=== PATIENT | male | born 1975 | race Caucasian/White ===

== ENCOUNTER 2016-09-23 07:23 | Emergency (ER) | payer MEDICAID ==
[2016-09-23 07:39] VITALS: RESP 18; TEMP 97.5
--- NOTE | 2016-09-23 07:43 | EDPHY ---
H & P Time Seen by Provider: 09/23/16 07:27 HPI/ROS: CHIEF COMPLAINT: Concerned about possible left elbow cellulitis HISTORY OF PRESENT ILLNESS: The patient presents to the ED because he is concerned about recurrent left elbow cellulitis. 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 He is currently homeless. The patient did developed a scab to his left elbow several days ago which he picked off this morning. He reported there is some mild discharge from the area. The patient denies additional skin lesions. He has no complaints of fever. The patient has been on clindamycin in the past. He is not been on recent antibiotics. REVIEW OF SYSTEMS: A comprehensive 10 point review of systems is otherwise negative aside from elements mentioned in the history of present illness. - Personal History Tetanus Vaccine Date: 2008 - Medical/Surgical History Hx Asthma: No Hx Chronic Respiratory Disease: No Hx Diabetes: No Hx Cardiac Disease: No Hx Renal Disease: No Hx Cirrhosis: No Hx Alcoholism: No Hx HIV/AIDS: No Hx Splenectomy or Spleen Trauma: No Other PMH: Subdural hemorrhage, homelessness - Physical Exam Exam: General Appearance: Alert, no distress Eyes: Pupils equal and round no pallor or injection ENT, Mouth: Mucous membranes moist Respiratory: There are no retractions, lungs are clear to auscultation Cardiovascular: Regular rate and rhythm Gastrointestinal: Abdomen is soft and nontender, no masses, bowel sounds normal Neurological: A&O, normal motor function, normal sensory exam, normal cranial nerves Skin: Small 1 cm x 1 cm area of cellulitis over the left olecranon Musculoskeletal: Neck is supple nontender Extremities: symmetrical, full range of motion Allergies/Adverse Reactions: Sulfa (Sulfonamide Antibiotics) Allergy (Verified 11/22/13 19:21) Home Medications: Medication Instructions Recorded Ibuprofen [Motrin] 800 mg PO DAILY 11/22/13 Multivitamins [Tab-A-Chuckie] 1 tab PO DAILY 11/22/13 Medical Decision Making ED Course/Re-evaluation: The patient presents to the ED with an extremely small area of cellulitis. There is no evidence of abscess, and olecranon bursitis or septic arthritis. The patient will be given a short course of clindamycin. He is advised to follow up with his primary care provider at [facility]. Departure - Departure Disposition: Home, Routine, Self-Care Clinical Impression: Cellulitis Condition: Good Instructions: Cellulitis (ED) Additional Instructions: 1. Please take antibiotics as directed for next 7 days. 2. Please follow up with [facility]. 3. Please return to the ED for markedly worsening pain, redness, fever, swelling or other concerns. Referrals: [facility] [Outside] - As per Instructions
[2016-09-23 08:00] VITALS: BP 133/85; PULSE 68; O2SAT 95
== END 2016-09-23 08:04 | disposition home or self-care (01) ==
LOC: EDUNIT#
DX: L03.114 Cellulitis of left upper limb (principal)

== ENCOUNTER 2018-07-24 14:47 | Emergency (ER) | payer MEDICAID, OTHER ==
--- NOTE | 2018-07-24 15:55 | EDPHY ---
H & P Time Seen by Provider: 07/24/18 15:19 HPI/ROS: CLINICAL IMPRESSION: Left lower dental abscess ASSESSMENT/PLAN: 42-year-old male brought to the ED by police from the long term for evaluation of a possible dental abscess. Patient reports having multiple CT scans, dental ultrasounds, and recent dental extraction as well as I and D of a dental and facial abscess. He is not currently on antibiotics. Patient has swelling noted to the left cheek near the mandible with no fluctuance, erythema, warmth or suggestion of underlying abscess. Palpation of this area however does reveal purulent discharge draining through recent dental extraction site on left posterior lower molar. No clinical signs of ANUG, gingival buccal abscess , facial cellulitis, facial abscess, Isiah's angina, neck abscess, osteomyelitis, or necrotizing fasciitis. Patient was started on clindamycin, a dentist will be available at the long term in the next 2 days and I recommended re- evaluation with dental x-rays at that time. Low threshold for return to ER sooner as outlined in person and with [employer]. DIFFERENTIAL DX: Periapical abscess, facial cellulitis, gingival buccal abscess,ANUG, Isiah's angina, neck abscess, neck cellulitis CHIEF COMPLAINT: Left facial swelling HPI: 42-year-old male presents to the emergency department with [facility] from the long term for evaluation of left facial swelling. Patient reports he has had several dental abscesses over the last month or 2 that have been treated by dentist. He also has been treated by [facility]. He reports having several dental extractions as well as drainage of an abscess through the skin of the left side of the face. He is not currently on antibiotics. No reported fevers, chills, difficulty handling secretions, tongue swelling or neck swelling. He does report tasting"bad tasting debris in his mouth which he believes is drainage from the abscess" PMH: See chart Pertinent Past Surgical History: Dental extraction Family History: Noncontributory Social History: Incarcerated ROS: A full 10 point review of systems was negative except for those mentioned in HPI. PHYSICAL EXAM: General Appearance: Alert, oriented, appropriate, cooperative, NAD, well hydrated, non-toxic appearing, VSS, no hypoxia. HEENT: [TMs are clear bilaterally no perforation or FB, no injection, no evidence of serous or mucopurulent otitis. Oropharynx clear is no erythema or exudates, no tonsillar hypertrophy or asymmetry. Recent dental extraction noted to left lower jaw. Palpation along the left mandible reveals purulent discharge in the mouth at extraction site. No evidence of gingival buccal abscess or ANUG. Swelling noted to left lateral cheek over the angle of the mandible with no fluctuance noted. Patient does have slight induration. No overlying erythema or warmth to suggest deep space infection. Full range of motion of the neck, base of tongue soft. No clinical signs of Isiah's. Neck: Supple, nontender, no lymphadenopathy, no midline pain, FROM, no meningismus. Respiratory: There are no retractions, lungs are clear to auscultation. Cardiac: Regular rate and rhythm, no murmurs or gallops. Skin: Warm, dry, no rashes, no nodules on palpation. MDM: Patient was seen independently by established practice protocols. Secondary supervising physician at time of evaluation was Dr. Ocampo. Diagnosis: Left facial swelling, dental abscess. New, requires workup Summary: See Assessment and Plan for summary of ED visit Clinical lab tests: Not performed. Risk of comlications, morbidity, mortality: Presenting problem low Diagnostic procedures low Management Options low Patient Progress: Stable. Smoking Status: Former smoker Constitutional: Initial Vital Signs Temperature (C) 36.6 C 07/24/18 15:04 Heart Rate 78 07/24/18 15:04 Respiratory Rate 16 07/24/18 15:04 Blood Pressure 130/91 H 07/24/18 15:04 O2 Sat (%) 97 07/24/18 15:04 O2 Delivery Mode Room Air Allergies/Adverse Reactions: Sulfa (Sulfonamide Antibiotics) Allergy (Verified 11/22/13 19:21) Home Medications: Medication Instructions Recorded Ibuprofen [Motrin] 800 mg PO DAILY 11/22/13 Multivitamins [Tab-A-Chuckie] 1 tab PO DAILY 11/22/13 Clindamycin 150 mg PO Q8 #21 cap 09/23/16 Clindamycin 300 mg PO Q6 #28 cap 07/24/18 MDM/Departure - Depart Disposition: Home, Routine, Self-Care Clinical Impression: Abscess of apex of dental root complicating chronic inflammation Condition: Good Instructions: Dental Abscess (ED) Additional Instructions: DISCHARGE INSTRUCTIONS FROM YOUR DOCTOR Thank you for visiting our emergency department today. Please keep in mind that discharge from the emergency department does not mean that there is nothing wrong - it simply means that we have not identified an emergency condition that requires further evaluation or treatment in the hospital. You should always plan to follow up with primary care for re-evaluation of your condition in the next 2-3 days. If you have been referred to a specialist, please call as soon as possible (today or tomorrow) to schedule your follow up appointment at the appropriate time. Please take the antibiotic we prescribed as directed. There is no indication to drain an abscess on the outer aspect of the face today. Abscess is draining in the mouth at recent dental extraction site. We recommend rinsing the mouth with warm salt water after every meal. Please see a dentist or oral surgeon this week for reassessment. Return to the emergency department immediately for increased swelling, redness or warmth to the skin of the face, development of fevers, inability to handle secretions, neck swelling or swelling beneath the chin, or any other concerns. Please use Tylenol or ibuprofen for pain. [facility] may also be able to provide assistance and can be reached at [phone]. People present with illnesses and injuries in different ways, and it is always possible that we have missed something. You may always return for re-evaluation if symptoms worsen or if they are not improving or if you develop new/different symptoms. Again, thank you for choosing our emergency department. We hope that you feel better. Prescriptions: Clindamycin 300 mg PO Q6 #28 cap Referrals: NONE *PRIMARY CARE P,. [Primary Care Provider] - As per Instructions [facility],. [Clinic] - As per Instructions
[2018-07-24 16:05] VITALS: BP 120/70
== END 2018-07-24 16:05 | disposition home or self-care (01) ==
DX: K04.7 Periapical abscess without sinus (principal)